=== PATIENT | male | born 1985 | race Caucasian/White ===

== ENCOUNTER 2017-01-12 18:42 | Emergency (ER) | payer OTHER ==
[2017-01-12 19:30] VITALS: BP 133/87; PULSE 101; RESP 18; TEMP 97.4
[2017-01-12] MEDS ORDERED: KETOROLAC 60 MG/2 ML VIAL IM STA (19:32)
--- NOTE | 2017-01-12 19:59 | ED ---
Wound/Laceration HPI - General Chief Complaint: Wound/Laceration Stated Complaint: LEFT MIDDLE FINGER LAC Time Seen by Provider: 01/12/17 19:31 Source: patient, RN notes reviewed Mode of arrival: ambulatory Limitations: no limitations - History of Present Illness Initial Comments: This is a 31-year-old male who presents to emergency department chief complaint of left middle finger laceration. Patient states that approximately 3 hours prior to arrival he was using a chain saw when it slipped and cut his distal left middle finger. He states he is unable to straighten that finger. He states he is in a considerable amount of pain. He states he is up-to-date on his vaccinations including tetanus. He states he has no sensation in the tip of his left middle finger. Denies fever, chills, chest pain, shortness of breath, abdominal pain, nausea or vomiting, constipation or diarrhea, dysuria or hematuria, numbness or tingling, headache or vision changes. - Related Data Previous Rx's Medication Instructions Recorded Cephalexin [Keflex] 500 mg PO Q12HR #20 cap 01/12/17 Ibuprofen 600 mg PO Q6HR #30 tablet 01/12/17 Allergies Allergy/AdvReac Type Severity Reaction Status Date / Time No Known Allergies Allergy Verified 01/12/17 19:30 Review of Systems ROS Statement: Those systems with pertinent positive or pertinent negative responses have been documented in the HPI. ROS Other: All systems not noted in ROS Statement are negative. Past Medical History Past Medical History: No Reported History History of Any Multi-Drug Resistant Organisms: None Reported Past Surgical History: No Surgical Hx Reported Past Psychological History: No Psychological Hx Reported Smoking Status: Current every day smoker Past Alcohol Use History: None Reported Past Drug Use History: None Reported General Exam - General Exam Comments Initial Comments: General: Awake and alert, well-developed; uncooperative and interfering with physical assessment. HEENT: Head atraumatic, normocephalic. Pupils are equal, round and reactive to light. Extraocular movements intact. Neck: Supple. Normal ROM. Cardiovascular: Regular rate and rhythm. No murmurs, rubs or gallops. Chest symmetrical. Respiratory: Lungs clear to auscultation bilaterally. No wheezes, rales or rhonchi. Normal respiratory effort with no use of accessory muscles. Musculoskeletal: left third digit is flexed at the DIP joint. Patient states there is lack of sensation at tip of left middle finger. Normal passive range of motion. Radial pulses are 2+ equal and palpable bilaterally. Skin: Daykin, warm and dry without rashes or lesions. Small 1 cm laceration at the distal left third digit proximal to fingernail. Neurological: Alert and oriented x3. CN II-XII grossly intact. Speech is fluent. No focal neuro deficits. Psychiatric: Normal mood and affect. No overt signs of depression or anxiety noted. Limitations: no limitations Course Vital Signs 01/12/17 19:27 Temperature 97.4 F L Pulse Rate 101 H Respiratory 18 Rate Blood Pressure 133/87 O2 Sat by Pulse 100 Oximetry Procedures - Laceration Laceration #1 Consent Obtained: verbal consent Indication: laceration Site: hand (left index finger) Size (cm): 1 Description: linear Depth: involves muscle layer, involves tendon Anesthetic Used: lidocaine 1% Anesthesia Technique: nerve block Amount (mls): 2 Pre-repair: irrigated extensively Type of Sutures: nylon Size of Sutures: 5-0 Number of Sutures: 1 Technique: simple, interrupted Patient Tolerated Procedure: well, no complications Medical Decision Making - Medical Decision Making This is a 32-year-old male who presents to the emergency department with chief complaint of left index finger laceration. Patient received an x-ray while in the emergency department that revealed flexion deformity consistent tendon injury. One suture and finger splint were placed and patient tolerated the procedure well. Neurovascular is intact. Patient will be discharged with referral to hand surgery and given a prescription for Keflex. Patient is in agreement to the plan and voices understanding. all questions were answered. - Radiology Data Radiology results: report reviewed Left finger x-ray findings: There is flexion deformity at the DIP joint of the middle finger left hand. I see no fracture line. Joint spaces are normal. Impression: Flexion deformity consistent with tendon injury. Disposition Clinical Impression: Injury of extensor tendon of left hand, Laceration Disposition: HOME SELF-CARE Condition: Good Instructions: Tendon Rupture (ED), Laceration (ED) Additional Instructions: Please follow up with orthopedics, Dr. Desai within 1-2 days. Please take medications as prescribed. Please follow up with primary care provider within 1- 2 days. Return to emergency department if symptoms should worsen or any concerns arise. Prescriptions: Cephalexin [Keflex] 500 mg PO Q12HR #20 cap Ibuprofen 600 mg PO Q6HR #30 tablet Referrals: None,Stated [Primary Care Provider] - 1-2 days Bucky Desai MD [STAFF PHYSICIAN] - 1-2 days
--- NOTE | 2017-01-12 20:45 | XR ---
EXAMINATION TYPE: XR finger LT DATE OF EXAM: 01/12/2017 COMPARISON: NONE HISTORY: Pain and injury TECHNIQUE: 3 views FINDINGS: There is flexion deformity at the DIP joint of the middle finger left hand. I see no fractu re line. Joint spaces are normal. IMPRESSION: Flexion deformity consistent with tendon injury.
== END 2017-01-12 21:18 | disposition home or self-care (01) ==
LOC: EC 18:42
DX: S61.213A Laceration without foreign body of left middle finger without damage to nail, initial encounter (principal); F17.200 Nicotine dependence, unspecified, uncomplicated; W45.8XXA Other foreign body or object entering through skin, initial encounter; Y93.89 Activity, other specified
CPT/HCPCS: 99283; 12001; 96372; 73140; J1885